=== PATIENT | female | born 1985 | race Asian ===

== ENCOUNTER 2021-09-18 15:55 | Emergency (ER) | payer OTHER ==
[~2021-09-18] VITALS: Ht 142.2 cm; Wt 41.8 kg
[2021-09-18 18:13] LABS: BASO # 0.2 K/mm3 (0.0-0.2); BASO % 2.1 % (0.0-2.0); EOS # 0.4 K/mm3 (0.0-0.7); EOS % 4.9 % (0-4.0); GRAN # 5.6 K/mm3 (1.4-6.5); HEMOGLOBIN 13.9 g/dl (12.5-16.0); LYMPH # 1.8 K/mm3 (1.2-3.4); LYMPH % 20.4 % (20.0-51.0); MEAN CELL VOLUME 85 fl (80.0-100.0); MEAN CORPUSCULAR HEMOGLOBIN 28 pg (27.0-31.0); MEAN CORPUSCULAR HGB CONC 33 g/dl (33.0-37.0); MONO # 0.6 K/mm3 (0.1-0.6); MONO % 7.3 % (1.7-9.3); RED BLOOD COUNT 4.96 M/mm3 (4.10-5.30)
[2021-09-18 18:16] LABS: PLATELET COUNT 8 K/mm3 (130-400)
[2021-09-18 18:23] LABS: ALBUMIN 4.6 gm/dL (3.5-5.0); BILIRUBIN,TOTAL 0.6 mg/dL (0.2-1.2); CREATININE, serum 0.71 mg/dL (0.57-1.11); POTASSIUM 3.9 mmol/L (3.5-4.5); TOTAL PROTEIN 7.8 gm/dL (6.2-8.1)
[2021-09-18 20:31] VITALS: BP 150/89; PULSE 69; TEMP 98.3
== END 2021-09-18 20:33 | disposition home or self-care (01) ==
LOC: COL.ER 15:55
PROVIDERS: Nurse Practitioner
DX: D69.3 Immune thrombocytopenic purpura (principal)
CPT/HCPCS: J8540

== ENCOUNTER → 2024-07-16 | Outpatient (CLI) | payer OTHER ==
[2024-07-16 14:04] LABS: HEMATOCRIT 41.6 % (37.0-47.0); MEAN CELL VOLUME 85 fl (80.0-100.0); MEAN CORPUSCULAR HEMOGLOBIN 29 pg (27-31); MEAN CORPUSCULAR HGB CONC 34 g/dl (33.0-37.0); MEAN PLATELET VOLUME 9.9 fl (7.4-10.4); PLATELET COUNT 303 K/mm3 (130-400); RED BLOOD COUNT 4.89 M/mm3 (4.10-5.30); REDCELL DISTRIBUTION WIDTH-CV 12.8 % (11.5-14.5)
== END ==
LOC: COL.LAB 13:25
PROVIDERS: Nurse Practitioner Family
DX: D69.3 Immune thrombocytopenic purpura (principal)